=== PATIENT | male | born 1965 | race Caucasian/White ===

== ENCOUNTER → 2022-05-25 16:20 | Outpatient (CLI) | payer MEDICAID, SELFPAY ==
--- NOTE | 2022-05-25 16:50 | XR_ITS ---
FINAL REPORT CLINICAL HISTORY: PAIN FINDINGS: Left ankle Three views were obtained. There is no acute fracture or dislocation. There are mild degenerative changes. Calcaneal spurs are identified. There are moderate degenerative changes of the midfoot. No soft tissue abnormality is identified. IMPRESSION: Mild and moderate degenerative changes as above. Reviewed, Interpreted and Dictated by Sheldon Alicea III, MD Transcribed by Connie Spencer Authenticated and . [facility]
--- NOTE | 2022-05-25 16:50 | XR_ITS ---
FINAL REPORT CLINICAL HISTORY: charcot foot FINDINGS: Right foot Three views were obtained. There is no acute fracture or dislocation. 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 There are mild degenerative changes of the 1st metatarsophalangeal with several subchondral cysts or chronic erosions. Small calcaneal spurs are identified. Note is made of pes planus deformity. 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 Reviewed, Interpreted and Dictated by Sheldon Alicea III, MD Transcribed by Connie Spencer Authenticated and [facility]
--- NOTE | 2022-05-25 16:50 | XR_ITS ---
FINAL REPORT CLINICAL HISTORY: PAIN FINDINGS: Right ankle Three views were obtained. There is no acute fracture or dislocation. There are mild degenerative changes. Calcaneal spurs are identified. There are moderate degenerative changes of the midfoot. There is chronic calcification inferior to the medial malleolus. No acute soft tissue abnormality is identified. IMPRESSION: Mild and moderate degenerative changes as above. Reviewed, Interpreted and Dictated by Sheldon Alicea III, MD Transcribed by Connie Spencer Authenticated and [facility]
[2022-05-25 17:12] LABS: Basophils # 0.1 K/mm3 (0-0.2); Basophils % 0.9 % (0.1-2.0); Eosinophils # 0.8 K/mm3 (0.0-0.4); Eosinophils % 7.7 % (0.1-12.0); Hematocrit 45.8 % (42.0-52.0); Hemoglobin 15.7 g/dL (14.1-18.0); Lymphocytes # 2.2 K/mm3 (0.7-4.5); Lymphocytes % 22.2 % (10-50); Mean Corpuscular HGB Conc 34.4 g/dL (31.8-35.4); Mean Corpuscular Hemoglobin 30.7 pg (27.0-31.2); Mean Corpuscular Volume 89.2 fl (80-94); Mean Platelet Volume 7.9 fl (7.4-10.4); Monocytes # 0.6 K/mm3 (0.1-1.0); Monocytes % 6.5 % (1.7-9.3); Neutrophils # 6.1 K/mm3 (1.8-7.8); Neutrophils % 62.6 % (37.0-80.0); Platelet Count 231 K/mm3 (142-424); Red Blood Count 5.13 M/mm3 (4.60-6.20); Red Cell Distribution Width 13.2 % (11.5-17.5); White Blood Count 9.7 K/mm3 (4.8-10.8)
[2022-05-25 17:34] LABS: Alanine Aminotransferase 27 U/L (12-78); Albumin Level 4.5 g/dl (3.5-5.0); Alkaline Phosphatase 85 U/L (38-126); Anion Gap 13.5 mEq/L (5-15); Aspartate Amino Transferase 31 U/L (17-59); Bilirubin,Total 0.7 mg/dl (0.2-1.3); Blood Urea Nitrogen 17 mg/dl (9-20); Calcium 9.9 mg/dl (8.4-10.2); Carbon Dioxide 27 mmol/L (22.0-30.0); Chloride 104 mmol/L (98-107); Estimated Glomerular Filt Rate 99 ml/min (>60); GFR (African American) 120 ML/MIN (>60); Globulin 2.3 g/dL (1.3-3.2); Glucose 96 mg/dl (74-100); Potassium 4.5 mmoL/L (3.5-5.1); Sodium 140 mmol/L (136-145); Total Protein,Serum 6.8 g/dl (6.3-8.2); Uric Acid 8.4 mg/dl (3.5-8.5)
[2022-05-25 17:56] LABS: Erythrocyte Sedimentation Rate 15 mm/hr (0-20)
[2022-05-25 18:05] LABS: Thyroid Stimulating Hormone 1.48 uIU/mL (0.465-4.68)
[2022-05-25 18:41] LABS: Vitamin B12 532 pg/mL (239-931)
[2022-06-05 17:31] LABS: 1,25 Dihydroxy Vitamin D 51 pg/mL (.); 1,25-Dihydroxy, Vitamin D-2 <10 pg/mL (.); 1,25-Dihydroxy, Vitamin D-3 48 pg/mL (.)
== END ==
PROVIDERS: PCP Family Medicine; Visit Provider Podiatrist
DX: M79.672 Pain in left foot (principal); M79.671 Pain in right foot; M25.572 Pain in left ankle and joints of left foot; M25.571 Pain in right ankle and joints of right foot
CPT/HCPCS: 36415; 73610; 73630; 80053; 82607; 82652; 82746; 84443; 84550; 85025; 85651; 86140